=== PATIENT | male | born 1955 | race Native Hawaiian/Other Pacific Islander ===

== ENCOUNTER 2023-06-22 10:55 | Outpatient (CLI) | payer OTHER | END 2023-06-22 20:21 | disposition home or self-care (01) | LOC: RESP 10:55 | PROVIDERS: ATTEND Specialist | DX: I10 Essential (primary) hypertension (principal); I25.10 Atherosclerotic heart disease of native coronary artery without angina pectoris; E78.49 Other hyperlipidemia ==

== ENCOUNTER 2023-06-23 11:21 | Outpatient (CLI) | payer OTHER ==
[~2023-06-23] VITALS: Ht 180.3 cm; Wt 87.1 kg
== END 2023-06-23 19:17 | disposition home or self-care (01) ==
LOC: NM 11:21
PROVIDERS: ATTEND Specialist
DX: I10 Essential (primary) hypertension (principal); I25.10 Atherosclerotic heart disease of native coronary artery without angina pectoris; E78.49 Other hyperlipidemia
CPT/HCPCS: A9500; J2785